=== PATIENT | female | born 1980 | race African-American/Black ===

== ENCOUNTER 2020-09-20 23:33 | Emergency (ER) | payer OTHER, SELFPAY ==
[2020-09-21] MEDS ORDERED: Acetaminophen 500 MG TAB ONE (00:22)
[2020-09-21 00:36] LABS: Bilirubin Neg (Negative); Blood, Urine Negative (Negative); Glucose, Urine (Dipstick) Normal (Negative); Ketone, Urine Negative (Negative); Leukocyte 25 (Negative); Nitrite Negative (Negative); Protein, Urine (Dipstick) Negative (Neg-Trace)
[2020-09-21 00:43] LABS: ALT (SGPT) 10 U/L (8-55); AST (SGOT) 17 U/L (5-34); Albumin 4.3 g/dL (3.5-5.0); Alkaline Phosphatase 63 U/L (40-110); Anion Gap 10 mmol/L (10-20); BUN (Urea Nitrogen) 10 mg/dL (7.0-18.7); Bilirubin, Total 0.5 mg/dL (0.2-1.2); Calc. Creatinine Clearance 0 mL/min (70-130); Calcium 9.1 mg/dL (7.8-10.44); Carbon Dioxide 25 mmol/L (22-29); Chloride 104 mmol/L (98-107); Globulin 3.2 g/dL (2.4-3.5); Glucose 97 mg/dL (70-105); Lipase 25 U/L (8-78); Potassium 3.7 mmol/L (3.5-5.1); Protein, Total 7.5 g/dL (6.0-8.3); Sodium 135 mmol/L (136-145)
[2020-09-21 00:50] LABS: Bacteria/HPF 1+ HPF (None Seen); Clarity Slightly Cloudy (Clear); Mucous/LPF None Seen LPF (<2+); RBC/HPF 0-3 HPF (0-3)
[2020-09-21 00:59] LABS: #Eosinphils 0.1 10x3/uL (0.0-0.5); #Monocytes 0.6 10x3/uL (0.0-1.1); #Neutrophils 4.6 10x3/uL (1.5-8.4); %Basophils 0.5 % (0.0-2.0); %Eosinophils 1.1 % (0.0-6.0); %Lymphocytes 34.1 % (18.0-47.0); %Monocytes 7.8 % (0.0-10.0); %Neutrophils 56.3 % (40.0-75.0); Hemoglobin 8.7 g/dL (12.0-15.5); Mean Corpuscular HGB CONC 33.6 g/dL (32.0-36.0); Mean Corpuscular Hemoglobin 24.1 pg (27.0-33.0); Mean Corpuscular Volume 71.7 fl (81.6-98.3); Platelet Count 192 10x3/uL (150-450); RBC Distribution Width 21.1 % (11.5-14.5); Red Blood Cell (RBC) Count 3.61 10x6/uL (3.90-5.03); White Blood Cell (WBC) Count 8.2 10x3/uL (3.5-10.5)
== END 2020-09-21 02:42 | disposition home or self-care (01) ==
LOC: CSHERS 23:33
DX: O23.42 Unspecified infection of urinary tract in pregnancy, second trimester (principal); O99.012 Anemia complicating pregnancy, second trimester; O41.8X20 Other specified disorders of amniotic fluid and membranes, second trimester, not applicable or unspecified; O99.332 Smoking (tobacco) complicating pregnancy, second trimester; Z3A.20 20 weeks gestation of pregnancy
CPT/HCPCS: 76815; 80053; 81003; 81015; 83690; 84702; 85025; 87086

== ENCOUNTER 2020-11-10 10:46 | Outpatient (CLI) | payer OTHER | END 2020-11-10 10:47 | disposition home or self-care (01) | LOC: CSHULT 10:46 | PROVIDERS: ATTEND Family Medicine | DX: O99.012 Anemia complicating pregnancy, second trimester (principal); D64.9 Anemia, unspecified; Z3A.18 18 weeks gestation of pregnancy | CPT/HCPCS: 76805 ==

== ENCOUNTER 2021-03-01 00:48 | Day surgery (SDC) | payer OTHER ==
[2021-03-01 01:19] VITALS: BMI 25.0
[2021-03-01] MEDS ORDERED: hydrALAZINE 20 MG/ML VIAL SLOW IVP PRN (01:31)
[2021-03-01] MEDS ORDERED: Ondansetron PF 4 MG/2 ML Vial IVP PRN (01:32)
[2021-03-01] MEDS ORDERED: Lactated Ringer's 1,000 ML IV SCH ×2 (01:45)
[2021-03-01] MEDS ORDERED: Ondansetron PF 4 MG/2 ML Vial IVP SCH (05:45)
== END 2021-03-01 06:20 | disposition home or self-care (01) ==
LOC: CSHLD/OP 00:48
PROVIDERS: ATTEND Family Medicine
DX: O21.2 Late vomiting of pregnancy (principal); O09.523 Supervision of elderly multigravida, third trimester; O99.333 Smoking (tobacco) complicating pregnancy, third trimester; F17.210 Nicotine dependence, cigarettes, uncomplicated; Z3A.35 35 weeks gestation of pregnancy
CPT/HCPCS: 96360; 96361; 96375; 99282; J2405

== ENCOUNTER 2021-05-01 13:57 | Emergency (ER) | payer OTHER ==
[2021-05-01] MEDS ORDERED: Acetaminophen 500 MG TAB ONE (15:02)
== END 2021-05-01 15:31 | disposition home or self-care (01) ==
LOC: CSHERS 13:57
DX: S40.021A Contusion of right upper arm, initial encounter (principal); M54.50 Low back pain, unspecified; I10 Essential (primary) hypertension; W31.9XXA Contact with unspecified machinery, initial encounter
CPT/HCPCS: 72100; G0390

== ENCOUNTER 2021-05-21 19:05 | Emergency (ER) | payer OTHER ==
[2021-05-21] MEDS ORDERED: Morphine 4 MG/ML VIAL ONE (20:14)
[2021-05-21] MEDS ORDERED: Ketorolac Tromethamine 30 MG/ML VIAL ONE (20:14)
[2021-05-21 20:40] LABS: ALT (SGPT) 10 U/L (8-55); AST (SGOT) 19 U/L (5-34); Albumin 4.2 g/dL (3.5-5.0); Alkaline Phosphatase 90 U/L (40-110); Anion Gap 11 mmol/L (10-20); BUN (Urea Nitrogen) 8 mg/dL (7.0-18.7); Bilirubin, Total 0.5 mg/dL (0.2-1.2); CK (CPK) 73 U/L (29-168); Calc. Creatinine Clearance 0 mL/min (70-130); Calcium 9.1 mg/dL (7.8-10.44); Carbon Dioxide 30 mmol/L (22-29); Chloride 101 mmol/L (98-107); Globulin 3.5 g/dL (2.4-3.5); Glucose 100 mg/dL (70-105); Potassium 3.2 mmol/L (3.5-5.1); Protein, Total 7.7 g/dL (6.0-8.3); Sodium 139 mmol/L (136-145)
[2021-05-21 22:22] LABS: Hemoglobin 10.5 g/dL (12.0-15.5); Mean Corpuscular HGB CONC 32.2 g/dL (32.0-36.0); Mean Corpuscular Volume 68.3 fl (81.6-98.3); Platelet Count 161 10x3/uL (150-450); RBC Distribution Width 16.7 % (11.5-14.5); Red Blood Cell (RBC) Count 4.77 10x6/uL (3.90-5.03); White Blood Cell (WBC) Count 5.5 10x3/uL (3.5-10.5)
[2021-05-21 22:23] LABS: MDiff Complete? YES
[2021-05-22 03:22] LABS: Microcytosis MODERATE=15-30 cells (100X) (0-5/hpf); Ovalocytes SLIGHT = 2-5 cells (100X) (0-1/hpf); Schistocytes SLIGHT = 2-5 cells (100X) (0-1/hpf); Target Cells SLIGHT = 2-5 cells (100X) (0-1/hpf)
== END 2021-05-21 22:23 | disposition home or self-care (01) ==
LOC: CSHERS 19:05
DX: S86.912A Strain of unspecified muscle(s) and tendon(s) at lower leg level, left leg, initial encounter (principal); I10 Essential (primary) hypertension; F17.210 Nicotine dependence, cigarettes, uncomplicated; W20.8XXA Other cause of strike by thrown, projected or falling object, initial encounter
CPT/HCPCS: 80053; 82550; 85025; 85379; 96372; 96374; J1885; J2270

== ENCOUNTER 2021-10-28 12:00 | Emergency (ER) | payer OTHER ==
[2021-10-28 12:30] LABS: #Eosinphils 0.1 10x3/uL (0.0-0.5); #Monocytes 0.3 10x3/uL (0.0-1.1); #Neutrophils 2.7 10x3/uL (1.5-8.4); %Basophils 0.8 % (0.0-2.0); %Eosinophils 1.2 % (0.0-6.0); %Lymphocytes 36.2 % (18.0-47.0); %Monocytes 6.2 % (0.0-10.0); %Neutrophils 55.4 % (40.0-75.0); Hemoglobin 9.7 g/dL (12.0-15.5); Mean Corpuscular HGB CONC 33.9 g/dL (32.0-36.0); Mean Corpuscular Hemoglobin 23.4 pg (27.0-33.0); Mean Corpuscular Volume 68.9 fl (81.6-98.3); Platelet Count 165 10x3/uL (150-450); RBC Distribution Width 19.6 % (11.5-14.5); Red Blood Cell (RBC) Count 4.15 10x6/uL (3.90-5.03); White Blood Cell (WBC) Count 4.8 10x3/uL (3.5-10.5)
[2021-10-28 12:36] LABS: BHCG - Serum Negative (NEGATIVE); Pregs Control Background? CLEAR/WHITE (CLR/WHITE); Pregs Control Bar Appear? YES (CONTROL BAR)
[2021-10-28 12:43] LABS: ALT (SGPT) 15 U/L (8-55); AST (SGOT) 23 U/L (5-34); Albumin 3.9 g/dL (3.5-5.0); Alkaline Phosphatase 78 U/L (40-110); Anion Gap 10 mmol/L (10-20); BUN (Urea Nitrogen) 8 mg/dL (7.0-18.7); Bilirubin, Total 0.7 mg/dL (0.2-1.2); Calc. Creatinine Clearance 0 mL/min (70-130); Calcium 8.8 mg/dL (7.8-10.44); Carbon Dioxide 26 mmol/L (22-29); Chloride 108 mmol/L (98-107); Globulin 3.1 g/dL (2.4-3.5); Glucose 106 mg/dL (70-105); Potassium 3.3 mmol/L (3.5-5.1); Sodium 141 mmol/L (136-145)
[2021-10-28 13:26] LABS: Anisocytosis MARKED = >30 cells (100X) (0-5/hpf); Microcytosis MARKED = >30 cells (100X) (0-5/hpf); Poikilocytosis SLIGHT = 6-15 cells (100X) (0-5/hpf); Schistocytes SLIGHT = 2-5 cells (100X) (0-1/hpf)
[2021-10-28 13:27] LABS: Target Cells SLIGHT = 2-5 cells (100X) (0-1/hpf); Tear Drops SLIGHT = 2-5 cells (100X) (0-1/hpf)
[2021-10-28 13:28] LABS: Platelet Morphology Comment Appears Adequate
[2021-10-28 13:29] LABS: Large Platelets SLIGHT
== END 2021-10-28 15:01 | disposition left against medical advice (07) ==
LOC: CSHERS 12:00
DX: Z53.21 Procedure and treatment not carried out due to patient leaving prior to being seen by health care provider (principal)
CPT/HCPCS: 36415; 80053; 84703; 85025

== ENCOUNTER 2021-10-31 02:50 | Emergency (ER) | payer OTHER ==
[2021-10-31 04:41] LABS: #Eosinphils 0.1 10x3/uL (0.0-0.5); #Monocytes 0.4 10x3/uL (0.0-1.1); %Basophils 0.5 % (0.0-2.0); %Eosinophils 1.3 % (0.0-6.0); %Lymphocytes 42.8 % (18.0-47.0); %Monocytes 7.2 % (0.0-10.0); Mean Corpuscular Hemoglobin 23.2 pg (27.0-33.0); Mean Corpuscular Volume 68.3 fl (81.6-98.3); Platelet Count 165 10x3/uL (150-450); RBC Distribution Width 19.7 % (11.5-14.5); Red Blood Cell (RBC) Count 3.88 10x6/uL (3.90-5.03); White Blood Cell (WBC) Count 5.5 10x3/uL (3.5-10.5)
[2021-10-31 04:48] LABS: Anion Gap 13 mmol/L (10-20); BUN (Urea Nitrogen) 11 mg/dL (7.0-18.7); Calc. Creatinine Clearance 0 mL/min (70-130); Calcium 8.8 mg/dL (7.8-10.44); Carbon Dioxide 24 mmol/L (22-29); Chloride 106 mmol/L (98-107); Glucose 89 mg/dL (70-105); Potassium 3.6 mmol/L (3.5-5.1); Sodium 139 mmol/L (136-145)
[2021-10-31] MEDS ORDERED: Meclizine HCl 25 MG TAB ONE (04:56)
== END 2021-10-31 05:01 | disposition home or self-care (01) ==
LOC: CSHERS 02:50
DX: D64.89 Other specified anemias (principal); N94.6 Dysmenorrhea, unspecified; I10 Essential (primary) hypertension; F17.210 Nicotine dependence, cigarettes, uncomplicated
CPT/HCPCS: 80048; 85025; 86850; 86900; 86901; 93005

== ENCOUNTER 2023-06-05 00:49 | Emergency (ER) | payer SELFPAY ==
[2023-06-05] MEDS ORDERED: Acetaminophen 500 MG TAB ONE (02:16)
== END 2023-06-05 02:21 | disposition home or self-care (01) ==
LOC: CSHERS 00:49
DX: L03.115 Cellulitis of right lower limb (principal); I10 Essential (primary) hypertension; F17.210 Nicotine dependence, cigarettes, uncomplicated
CPT/HCPCS: 99283

== ENCOUNTER 2025-01-12 20:49 | Inpatient (IN) | payer OTHER ==
[2025-01-12] MEDS ORDERED: hydrALAZINE 20 MG/ML VIAL SLOW IVP PRN ×3 (21:07→21:40)
[2025-01-12] MEDS ORDERED: Carboprost 250 MCG/ML AMP IM PRN (21:24)
[2025-01-12] MEDS ORDERED: Tranexamic Acid 1,000 MG/10 ML VIAL IVP PRN (21:24)
[2025-01-12] MEDS ORDERED: Lidocaine 1% (PF) 30 ML VIAL SC PRN (21:24)
[2025-01-12] MEDS ORDERED: Ibuprofen 800 MG TAB PO PRN (21:24)
[2025-01-12] MEDS ORDERED: Diphenoxylate HCl/Atropine Tablet PO PRN (21:24)
[2025-01-12] MEDS ORDERED: Calcium Gluc 4.6 MEQ/10 ML (100 MG/ML) SLOW IVP PRN ×2 (21:24→21:40)
[2025-01-12] MEDS ORDERED: Methylergonovine 0.2 MG/ML VIAL IM PRN (21:24)
[2025-01-12] MEDS ORDERED: Magnesium Sulfate 20 gm/500 ml 20 GM/500 ML BAG IVPB SCH (21:30)
[2025-01-12] MEDS: Magnesium Sulfate 20 gm/500 ml 20 GM/500 ML BAG ONE (21:38)
[2025-01-12 22:03] VITALS: BMI 28.7
[2025-01-12 22:46] LABS: ALT (SGPT) Less than 7 U/L (Less than 34); AST (SGOT) 21 U/L (11-34); Albumin 2.9 g/dL (3.1-4.5); Alkaline Phosphatase 119 U/L (40-110); Anion Gap 11 mmol/L (10-20); BUN (Urea Nitrogen) 7 mg/dL (7.0-18.7); Bilirubin, Total 0.6 mg/dL (0.3-1.2); Calc. Creatinine Clearance 137 mL/min (70-130); Calcium 8.2 mg/dL (7.8-10.44); Carbon Dioxide 21 mmol/L (22-29); Chloride 106 mmol/L (98-107); Globulin 3.7 g/dL (2.4-3.5); Glucose 110 mg/dL (70-105); Potassium 3.4 mmol/L (3.5-5.1); Sodium 135 mmol/L (136-145)
[2025-01-12 22:58] LABS: #Basophils 0.03 10x3/uL (0.0-0.2); #Eosinophils 0.05 10x3/uL (0.0-0.5); #Monocytes 0.70 10x3/uL (0.0-1.1); #Neutrophils 4.28 10x3/uL (1.5-8.4); %Basophils 0.4 % (0.0-2.0); %Eosinophils 0.7 % (0.0-6.0); %Lymphocytes 29.1 % (18.0-47.0); %Monocytes 9.8 % (0.0-10.0); %Neutrophils 59.7 % (40.0-75.0); Hematocrit 25.7 % (34.9-44.5); Hemoglobin 8.5 g/dL (12.0-15.5); Mean Corpuscular Hemoglobin 24.1 pg (27.0-33.0); Mean Corpuscular Volume 73.0 fL (81.6-98.3); Platelet Count 128 10x3/uL (150-450); Red Blood Cell (RBC) Count 3.52 10x6/uL (3.90-5.03); White Blood Cell (WBC) Count 7.16 10x3/uL (3.5-10.5)
[2025-01-12 23:05] LABS: Syphilis Antibody Index 0.08 S/CO (<1.00 Non-Reactive)
[2025-01-12 23:06] LABS: Hep B Surf Ag - L&D Non-Reactive S/CO (NonReactive)
[2025-01-12 23:38] LABS: Protein, Urine Random Quant Less than 10 mg/dL (1-14)
[2025-01-13] MEDS: Acetaminophen 500 MG TAB PO PRN (00:46)
[2025-01-13] MEDS: Ondansetron PF 4 MG/2 ML Vial IVP PRN ×2 (00:49→12:38)
[2025-01-13] MEDS: Oxytocin 30 units/NS 500 ML 500 ML IV SCH (05:10)
[2025-01-13] MEDS: Magnesium Sulfate 20 gm/500 ml 20 GM/500 ML BAG IVPB SCH (05:16)
[2025-01-13] MEDS: fentaNYL/Ropivacaine Epidural 100 ML ONE (08:07)
[2025-01-13] MEDS ORDERED: Acetaminophen 325 MG TAB PO PRN (09:16)
[2025-01-13] MEDS ORDERED: Communication Order-Pharmacy FS SCH (09:30)
[2025-01-13] MEDS ORDERED: Oxytocin 30 units/NS 500 ML 500 ML IV SCH (11:55)
[2025-01-13] MEDS: Calcium Carbonate 500 MG ChewTAB PO SCH (17:32)
[2025-01-13] MEDS: fentaNYL 2 mcg/Ropivacaine 0.2% Epidural 100 ML CADD EPIDURAL SCH (19:06)
[2025-01-14] MEDS ORDERED: Meperidine HCl/PF 25 MG (1 mL) VIAL SLOW IVP PRN (00:32)
[2025-01-14] MEDS ORDERED: Communication Order-Pharmacy FS SCH (00:45)
[2025-01-14] MEDS: diphenhydrAMINE 50 MG/ML VIAL IVP PRN ×2 (01:53→19:25)
[2025-01-14] MEDS: Ketorolac Tromethamine 30 MG (1 mL) VIAL IVP SCH ×2 (01:53→21:45)
[2025-01-14] MEDS: Azithromycin 500 MG VIAL ONE (11:33)
[2025-01-14] MEDS: CEFAZOLIN 2 GM VIAL ONE (11:33)
[2025-01-14] MEDS ORDERED: Boostrix 0.5 ML (Tdap) VIAL (>/=7 yrs of age) IM ONE (13:36)
[2025-01-14] MEDS ORDERED: Calcium Gluc 4.6 MEQ/10 ML (100 MG/ML) SLOW IVP PRN (13:36)
[2025-01-14] MEDS ORDERED: Lanolin Ointment 7 GM TUBE TOP PRN (13:36)
[2025-01-14] MEDS ORDERED: hydrALAZINE 20 MG/ML VIAL SLOW IVP PRN ×2 (13:36)
[2025-01-14] MEDS ORDERED: HYDROcodone/Acetaminophen 5/325 mg Tablet PO PRN (13:36)
[2025-01-14] MEDS ORDERED: Meperidine HCl/PF 25 MG (1 mL) VIAL IM PRN (13:36)
[2025-01-14] MEDS ORDERED: diphenhydrAMINE 25 MG CAP PO PRN (13:36)
[2025-01-14] MEDS: Simethicone Chewable 80 MG TAB PO PRN (17:16)
[2025-01-14] MEDS: Bisacodyl 10 MG SUPP PR PRN (22:50)
[2025-01-15] MEDS: Ferrous Sulfate 325 MG TAB PO SCH ×2 (03:35→03:36)
[2025-01-15] MEDS: Ibuprofen 800 MG TAB PO SCH (05:13)
[2025-01-15 05:22] LABS: Hematocrit 23.4 % (34.9-44.5); Hemoglobin 7.5 g/dL (12.0-15.5); Mean Corpuscular Hemoglobin 23.3 pg (27.0-33.0); Mean Corpuscular Volume 72.7 fL (81.6-98.3); Platelet Count 136 10x3/uL (150-450); Red Blood Cell (RBC) Count 3.22 10x6/uL (3.90-5.03); White Blood Cell (WBC) Count 11.13 10x3/uL (3.5-10.5)
[2025-01-15 05:31] LABS: ALT (SGPT) 8 U/L (Less than 34); AST (SGOT) 32 U/L (11-34); Albumin 2.6 g/dL (3.1-4.5); Alkaline Phosphatase 95 U/L (40-110); Anion Gap 17 mmol/L (10-20); BUN (Urea Nitrogen) 6 mg/dL (7.0-18.7); Bilirubin, Total 0.6 mg/dL (0.3-1.2); Calc. Creatinine Clearance 142 mL/min (70-130); Calcium 7.7 mg/dL (7.8-10.44); Carbon Dioxide 21 mmol/L (22-29); Chloride 106 mmol/L (98-107); Globulin 3.4 g/dL (2.4-3.5); Glucose 99 mg/dL (70-105); Magnesium 3.0 mg/dL (1.6-2.6); Potassium 4.0 mmol/L (3.5-5.1); Sodium 140 mmol/L (136-145)
[2025-01-15] MEDS: Ondansetron PF 4 MG/2 ML Vial ONE (07:33)
[2025-01-15] MEDS: Erythromycin Base 0.5% Oint 1 GM TUBE ONE (07:34)
[2025-01-15] MEDS: Hepatitis B Vaccine 10 MCG/0.5 ML SYR ONE (07:34)
[2025-01-15] MEDS: Dexamethasone 10 MG/ML VIAL ONE (07:34)
[2025-01-15] MEDS: KETAMINE 100 MG/ML (5ML VIAL) ONE (07:35)
[2025-01-15] MEDS: NIFEdipine XL 30 MG ER.TAB PO SCH (07:37)
[2025-01-15] MEDS: HYDROcodone/Acetaminophen 5/325 mg Tablet PO PRN (08:14)
[2025-01-15] MEDS ORDERED: NIFEdipine XL 30 MG ER.TAB PO SCH (09:00)
[2025-01-15] MEDS: Ondansetron PF 4 MG/2 ML Vial IVP PRN (22:47)
[2025-01-17] MEDS: Milk Of Magnesia 30 ML UDCUP PO SCH (08:58)
[2025-01-17 13:01] VITALS: BMI 28.7
[2025-01-17] MEDS: hydrALAZINE 20 MG/ML VIAL SLOW IVP SCH (13:18)
[2025-01-17] MEDS: Ibuprofen 200 MG TAB PO PRN (13:19)
[2025-01-17] MEDS: NIFEdipine XL 30 MG ER.TAB PO SCH (16:03)
[2025-01-18 08:50] VITALS: BP 124/70; TEMP 98.5
[2025-01-18] MEDS ORDERED: NIFEdipine XL 30 MG ER.TAB PO SCH (16:00)
== END 2025-01-18 11:45 | disposition home or self-care (01) | DRG 788 ==
LOC: CSHLD/OP 20:49 → CSHLD 21:34 → CSHPED 01-15
PROVIDERS: ADMIT Family Medicine; ATTEND Family Medicine
PROC: 10D00Z1 Extraction of Products of Conception, Low, Open Approach (ICD-10-PCS; principal; 2025-01-13)
PROC: 10907ZC Drainage of Amniotic Fluid, Therapeutic from Products of Conception, Via Natural or Artificial Opening (ICD-10-PCS; principal; 2025-01-13)
PROC: 3E033VJ Introduction of Other Hormone into Peripheral Vein, Percutaneous Approach (ICD-10-PCS; principal; 2025-01-13)
PROC: 10H07YZ Insertion of Other Device into Products of Conception, Via Natural or Artificial Opening (ICD-10-PCS; principal; 2025-01-13)
PROC: 3E0234Z Introduction of Serum, Toxoid and Vaccine into Muscle, Percutaneous Approach (ICD-10-PCS; principal; 2025-01-13)
DX: O14.14 Severe pre-eclampsia complicating childbirth (principal); O99.02 Anemia complicating childbirth; D50.9 Iron deficiency anemia, unspecified; O76 Abnormality in fetal heart rate and rhythm complicating labor and delivery; R59.0 Localized enlarged lymph nodes; R14.0 Abdominal distension (gaseous); O99.893 Other specified diseases and conditions complicating puerperium; Z3A.37 37 weeks gestation of pregnancy; Z37.0 Single live birth; Z23 Encounter for immunization
CPT/HCPCS: 36415; 51702; 74018; 80053; 82570; 83735; 84156; 85025; 85027; 86780; 86850; 86900; 86901; 87340; 99285; C1889; J0360; J1100; J1200; J1885; J2274; J2405; J2550; J2590; J3010; J3475; J7120

== ENCOUNTER 2025-06-07 18:31 | Emergency (ER) | payer OTHER | END 2025-06-07 19:45 | LOC: CSHERS 18:31 | DX: Z53.21 Procedure and treatment not carried out due to patient leaving prior to being seen by health care provider (principal) ==

== ENCOUNTER 2025-06-21 20:11 | Emergency (ER) | payer OTHER ==
[2025-06-21] MEDS ORDERED: Ketorolac Tromethamine 30 MG (1 mL) VIAL ONE (21:38)
[2025-06-21 21:45] LABS: Platelet Count 181 10x3/uL (150-450)
[2025-06-21 21:46] LABS: #Basophils Less than 0.03 10x3/uL (0.0-0.2); #Eosinophils 0.17 10x3/uL (0.0-0.5); #Monocytes 0.47 10x3/uL (0.0-1.1); #Neutrophils 4.41 10x3/uL (1.5-8.4); %Basophils 0.3 % (0.0-2.0); %Eosinophils 2.2 % (0.0-6.0); %Lymphocytes 35.4 % (18.0-47.0); %Monocytes 6.0 % (0.0-10.0); %Neutrophils 55.7 % (40.0-75.0); Hematocrit 28.5 % (34.9-44.5); Hemoglobin 9.3 g/dL (12.0-15.5); Mean Corpuscular Hemoglobin 22.1 pg (27.0-33.0); Mean Corpuscular Volume 67.7 fL (81.6-98.3); Red Blood Cell (RBC) Count 4.21 10x6/uL (3.90-5.03); White Blood Cell (WBC) Count 7.89 10x3/uL (3.5-10.5)
[2025-06-21 21:55] LABS: ALT (SGPT) 8 U/L (Less than 34); AST (SGOT) 21 U/L (11-34); Albumin 3.9 g/dL (3.1-4.5); Alkaline Phosphatase 83 U/L (40-110); Anion Gap 10 mmol/L (10-20); BUN (Urea Nitrogen) 13 mg/dL (7.0-18.7); Bilirubin, Total 0.3 mg/dL (0.3-1.2); Calc. Creatinine Clearance 0 mL/min (70-130); Calcium 8.9 mg/dL (7.8-10.44); Carbon Dioxide 24 mmol/L (22-29); Chloride 109 mmol/L (98-107); Globulin 3.4 g/dL (2.4-3.5); Glucose 100 mg/dL (70-105); Potassium 3.3 mmol/L (3.5-5.1); Sodium 140 mmol/L (136-145)
[2025-06-21 22:01] LABS: Troponin I Less than 0.010 ng/mL (< 0.028)
[2025-06-22 00:57] LABS: Troponin I Less than 0.010 ng/mL (< 0.028)
== END 2025-06-22 01:00 | disposition home or self-care (01) ==
LOC: CSHERS 20:11
DX: R07.9 Chest pain, unspecified (principal); I10 Essential (primary) hypertension; Z79.899 Other long term (current) drug therapy
CPT/HCPCS: 36415; 71046; 83880; 84484; 85379; 93005; 96374; J1885